=== PATIENT | male | born 1945 | race Hispanic/Latino ===

== ENCOUNTER 2018-08-16 05:30 | Day surgery (SDC) | payer MEDICARE ==
[2018-08-12 11:40] VITALS: BP 116/75
[2018-08-12 11:50] LABS: BASOPHILS % (AUTO) 0.7 % (0.0-5.0); EOSINOPHILS % (AUTO) 2.6 % (0.0-8.0); HEMATOCRIT 32.3 % (42-54); LYMPHOCYTES % (AUTO) 24.4 % (21.0-51.0); MEAN CORPUSCULAR HEMOGLOBIN 23.9 pg (27.0-33.0); MEAN CORPUSCULAR HGB CONC 31.7 g/dL (32.0-36.0); MEAN CORPUSCULAR VOLUME 75.4 fL (79-99); MONOCYTES % (AUTO) 6.3 % (3.0-13.0); NUCLEATED RED BLOOD CELLS 0.1 % (0.0-0.19); PLATELET COUNT (AUTO) 225 K/uL (130-400); RED BLOOD CELL COUNT(AUTO) 4.29 MIL/uL (4.50-6.20); RED CELL DISTRIBUTION WIDTH 25.6 % (11.0-15.5); WHITE BLOOD COUNT (AUTO) 6.7 K/uL (4.8-10.8)
[2018-08-12 11:55] LABS: APPEARANCE,URINE Clear (CLEAR); BILIRUBIN,URINE Negative (NEGATIVE); COLOR,URINE Yellow (YELLOW); GLUCOSE, URINE (UA) Negative (NEGATIVE); KETONES,URINE Negative (NEGATIVE); LEUKOCYTE ESTERASE ,URINE Negative (NEGATIVE); NITRATE,URINE Negative (NEGATIVE); OCCULT BLOOD,URINE Negative (NEGATIVE); PH,URINE 6.5 (5.0-8.0); PROTEIN,URINE Negative (NEGATIVE)
[2018-08-12 12:04] LABS: INR 1.02 (0.85-1.15); PARTIAL THROMBOPLASTIN TIME 34.3 SEC (26.3-35.5); PROTHROMBIN TIME 10.7 SEC (9.6-11.6)
[2018-08-12 12:59] LABS: POTASSIUM 4.3 mmol/L (3.5-5.1)
--- NOTE | 2018-08-15 13:27 | NUR ---
ABNORMAL HGB 10.2/HCT30.3 REPORTED TO JAY PASTRANA, NO NEW ORDERS RECEIVED, OK TO PROCEED WITH PROCEDURE.
[2018-08-16] VITALS (10 sets, daily range): BP systolic 116–151; BP diastolic 62–90
[~2018-08-16] VITALS: Ht 172.7 cm; Wt 95.1 kg
[~2018-08-16 05:30] MED LIST: ALBU8.5H8 IH; APIX5TAB PO; ASPI81TA40 PO; FINA5TAB41 PO; FLUT1BLS3 IH; FURO-152 PO; METO100T14 PO; PANT40TA25 PO; PROCTOCM PR; ROSU10TA27 PO; TAMS0.4C32 PO; [UNRECOGNIZED DRUG - OTHER] PO
[2018-08-16] MEDS ORDERED: SODIUM CHLORIDE 0.9% 1000ML 1,000 ML IV ONE (06:35)
[2018-08-16] MEDS ORDERED: NITROGLYCERIN 5 MG/ML 10 ML VIAL IV ONE (10:14)
[2018-08-16] MEDS ORDERED: LIDOCAINE HCL 1% 20 ML VIAL ONE (10:14)
[2018-08-16] MEDS ORDERED: HEPARIN SODIUM 1000UNIT/ML 10ML VIAL ONE (10:14)
[2018-08-16] MEDS ORDERED: SODIUM BICARB 50MEQ 50ML VIAL ONE (10:14)
[2018-08-16] MEDS ORDERED: IOHEXOL-350 50ML VIAL IV ONE (10:14)
[2018-08-16] MEDS ORDERED: IOHEXOL 350 MG/ML 100ML INFUS..BTL IV ONE (10:15)
[2018-08-16] MEDS ORDERED: MIDAZOLAM HCL 1 MG/ML 2ML VIAL ONE ×2 (10:15→12:38)
[2018-08-16] MEDS ORDERED: MEPERIDINE-PF 25 MG/ML SYG ONE ×2 (10:15→12:37)
[2018-08-16] MEDS ORDERED: SODIUM CHLORIDE 0.9% 1000ML 1,000 ML IV SCH (11:27)
== END 2018-08-16 16:10 | disposition home or self-care (01) ==
LOC: DAH 05:30
PROVIDERS: ATTEND Internal Medicine Cardiovascular Disease
DX: I25.798 Atherosclerosis of other coronary artery bypass graft(s) with other forms of angina pectoris (principal); I48.2 Chronic atrial fibrillation; Z86.73 Personal history of transient ischemic attack (TIA), and cerebral infarction without residual deficits; E78.5 Hyperlipidemia, unspecified; Z79.01 Long term (current) use of anticoagulants; Z87.891 Personal history of nicotine dependence; G47.33 Obstructive sleep apnea (adult) (pediatric); D50.9 Iron deficiency anemia, unspecified; Z79.899 Other long term (current) drug therapy; Z98.890 Other specified postprocedural states; Z82.49 Family history of ischemic heart disease and other diseases of the circulatory system; Z68.32 Body mass index [BMI] 32.0-32.9, adult
CPT/HCPCS: 36415; 71045; 80048; 81003; 85025; 85610; 85730; 93005; 93459; A4606; C1760; C1894; J1644; J2175 ×2; J2250 ×2; J3490 ×2; J7030; Q9965; Q9967 ×2; 99156; 99157

== ENCOUNTER 2018-09-07 15:04 | Inpatient (IN) | payer MEDICARE | END 2018-09-09 12:17 | disposition home or self-care (01) | LOC: EDH 15:04 → 3AH 09-08 16:15 → EDHIP 18:26 → 2CH 21:00 | DX: J20.9 Acute bronchitis, unspecified (principal); I48.92 Unspecified atrial flutter; D68.69 Other thrombophilia; I16.0 Hypertensive urgency; I48.91 Unspecified atrial fibrillation ==

== ENCOUNTER 2023-09-25 18:08 | Emergency (ER) | payer OTHER, MEDICARE ==
[~2023-09-25] VITALS: Ht 172.7 cm; Wt 88.9 kg
[~2023-09-25 18:08] MED LIST changes: -ALBU8.5H8 IH; +ALPR0.255 PO; +FLUT16H NS; +IRON1CAP6 PO; +ISOS30TA92 PO; +LISI40TA9 PO; -PANT40TA25 PO; +PANT40TA54 PO; -PROCTOCM PR; +RANO500T6 PO; -ROSU10TA27 PO; +ROSU10TA72 PO
[2023-09-25] MEDS: LIDOCAINE HCL 2% JELLY 5 ML TP SCH (18:44)
[2023-09-25 19:16] LABS: ADD UA MICROSCOPIC YES; APPEARANCE,URINE CLEAR (CLEAR); BILIRUBIN,URINE NEGATIVE (NEGATIVE); COLOR,URINE YELLOW (YELLOW); GLUCOSE, URINE (UA) NEGATIVE (NEGATIVE); KETONES,URINE NEGATIVE (NEGATIVE); LEUKOCYTE ESTERASE ,URINE NEGATIVE Leu/uL (NEGATIVE); NITRATE,URINE NEGATIVE (NEGATIVE); OCCULT BLOOD,URINE NEGATIVE (NEGATIVE); PH,URINE 5.5 (5.0-8.0); PROTEIN,URINE 20 mg/dL (NEGATIVE); UROBILINOGEN,URINE 0.2 mg/dL (0.2-1.0)
[2023-09-25 19:17] VITALS: BP 127/74; PULSE 75; RESP 16; O2SAT 98
== END 2023-09-25 19:58 | disposition home or self-care (01) ==
LOC: EDH 18:08
DX: N40.1 Benign prostatic hyperplasia with lower urinary tract symptoms (principal); I10 Essential (primary) hypertension; F41.9 Anxiety disorder, unspecified; I48.91 Unspecified atrial fibrillation; J44.9 Chronic obstructive pulmonary disease, unspecified; Z79.82 Long term (current) use of aspirin; Z79.899 Other long term (current) drug therapy; Z98.890 Other specified postprocedural states
CPT/HCPCS: 51702; 81001